=== PATIENT | male | born 1975 | race Caucasian/White ===

== ENCOUNTER 2018-04-17 16:40 | Emergency (ER) | payer BC ==
--- OUTSIDE RECORDS SUMMARY | 2018-04-17 16:55 | XMS REPORT ---
:1975 External Reference #:[id number] Author Organization [facility] Address [address], [address] [place] [address] Phone [phone] Care Team Providers Name Role Phone Teresita Weiss PA Care Team Information Mice Raiser Unavailable Teresita Weiss PA Primary Care Physician Unavailable Payers Type Date Identification Numbers Payment Provider Subscriber Commercial Policy Number: [id number] Vani Paniagua PayID: [id number] [address] [address] [place] [address] Commercial Expires: 2017 Policy Number: Kirondo Huang Paniagua [id number] PayID: [id number] [address] [place] [address] Problems Description No Information Family History Date Family Member(s) Problem(s) Comments Father Heart Attack Father Diabetes Father Hypertension Mother No Current Problems Social History Type Date Description Comments Lives With Girlfriend Diet Patient follows no dietary restrictions Occupation [employer] Cigarette Use Never Smoked Cigarettes ETOH Use Rarely consumes alcohol Smoking Patient denies history of smoking Daily Caffeine Consumes on average 5-10 cups of regular coffee per day Allergies, Adverse Reactions, Alerts Date Description Reaction Status Severity Comments 04/20/2017 NKDA active Medications Medication Date Status Form Strength Qnty SIG Indications Ordering Provider Metoprolol 05/21/ Active Tablets ER 25mg 90tab 1 tab by I10 Flex, Succinate ER 2016 24HR s mouth every MD [place] day One Daily 00// Active Tablets Multivitamin Unknown 0000 for men. one tab daily Super B / Active Tablets 1 by mouth Unknown Complex 0000 every day Vitamin D 00/00/ Active Tablets 1000Unit 1 by mouth Unknown 0000 every day Wrist Blood 04/20/ Misc 1unit BP recordings R03.0 Marcy, Pressure 2016 - as directed. Marilee, Monitor 04/21/ MTiffanie 2017 Doxycycline 00/ Hx Tablets 100mg Unknown Hyclate - 2017 Prednisone // Hx Tablets 20mg Unknown 0000 - 2017 Neomycin-Poly / Hx Solution 1% Unknown myxin-HC - 2017 Proair HFA / Hx Aerosol 108(90Base Unknown 0000 - ) mcg/Act 2017 Immunizations CPT Code Status Date Vaccine Lot # [id number] Given 03/28/2018 Influenza Virus Vaccine, Quadrivalent, 36 Mos+, .5ML Vital Signs Date Vital Result Comment 04/12/2018 BP Systolic Sitting Left Arm 134 mmHg BP Diastolic Sitting Left Arm 82 mmHg Body Temperature 98.4 F Heart Rate 79 /min Weight 302.38 lb O2 % BldC Oximetry 91 % 10/25/2017 BP Systolic Sitting Left Arm 140 mmHg BP Diastolic Sitting Left Arm 68 mmHg Body Temperature 98.5 F Heart Rate 80 /min Weight 302.00 lb O2 % BldC Oximetry 96 % 06/16/2017 BP Systolic 132 mmHg BP Diastolic 82 mmHg Body Temperature 97.5 F Heart Rate 89 /min Height 72 inches 6'0" Weight 295.00 lb BMI (Body Mass Index) 40.0 kg/m2 BSA (Body Surface Area) 2.51 m2 [place] body weight in kilograms 81 O2 % BldC Oximetry 96 % 05/21/2017 BP Systolic 158 mmHg BP Diastolic 102 mmHg Heart Rate 81 /min Height 72 inches 6'0" Weight 296.38 lb BMI (Body Mass Index) 40.2 kg/m2 BSA (Body Surface Area) 2.52 m2 [place] body weight in kilograms 81 04/20/2017 BP Systolic Sitting Right Arm 134 mmHg BP Diastolic Sitting Right Arm 82 mmHg Body Temperature 98.0 F Heart Rate 80 /min Height 72 inches 6'0" Weight 294.00 lb BMI (Body Mass Index) 39.9 kg/m2 BSA (Body Surface Area) 2.51 m2 [place] body weight in kilograms 81 Results Test Date Test Result H/L Range Note CBC W/Automated Diff 04/12/2018 White Blood Count 5.7 K/uL 3.4-10.5 1 Red Blood Count 4.82 M/uL 4.20-5.80 1 Hemoglobin 15.0 gm/dL 12.8-17.0 1 Hematocrit 42.9 % 38.0-48.0 1 Mean Cell Volume 89.0 fl 80.0-96.0 1 Mean Corpuscular HGB 31.1 pg 27.0-33.0 1 Mean Corpuscular HGB Conc 35.0 g/dL 31.7-36.0 1 Platelet Count 207 K/uL 155-360 1 Red Cell Distri Width SD 38.3 fl 36-51 1 Red Cell Distri Width %CV 12.0 % 11.6-15.8 1 Mean Platelet Volume 10.5 fL 6.6-10.6 1 Neut% 56.5 % 33.0-73.0 1 Lymph % 30.1 % 20.0-42.0 1 [place] % 8.2 % 0.0-10.0 1 Eo% 4.7 % 0.0-6.6 1 Bas% 0.5 % 0.0-1.1 1 Neut# 3.23 K/uL 1.8-7.0 1 Lymph # 1.72 K/uL 1.0-4.0 1 [place] # 0.47 K/uL 0.0-0.8 1 Eos # 0.27 K/uL 0.0-0.5 1 Baso # 0.03 K/uL 0.0-0.1 1 Comprehensive Metabolic Panel 04/12/2018 Glucose 160 mg/dL High 74-106 1 BUN 13 mg/dL 7-18 1 Creatinine 0.9 mg/dL 0.6-1.3 1 Glom Filtration Rate, Estimate >60 mL/min >60 1 If >60 mL/min >60 1, 2 BUN/Creat 14.4 ratio 1 Sodium 140 mmol/L 136-145 1 Potassium 3.8 mmol/L 3.5-5.1 1 Chloride 106 mmol/L 98-107 1 Carbon Dioxide 23 mmol/L 21-32 1 Anion Gap 11 mEq/L 8-16 1 Calcium 8.0 mg/dL Low 8.5-10.1 1 Total Protein 7.3 g/dL 6.4-8.2 1 Albumin 3.6 g/dL 3.4-5.0 1 Globulin 3.7 g/dL 1.9-4.3 1 Alb/Glob 1.0 ratio 1 Bilirubin,Total 0.5 mg/dL 0.2-1.0 1 Sgot/Ast 22 U/L 15-37 1 SGPT/Alt 78 U/L 12-78 1 Alkaline Phosphatase 75 U/L 45-117 1 Laboratory test finding 04/12/2018 Thyroid Stim Hormone < 0.01 uIU/mL Low 0.30-4.20 1 CBS W/Automated Diff 05/08/2017 White Blood Count 5.7 K/uL 3.4-10.5 3 Red Blood Count 5.08 M/uL 4.20-5.80 3 Hemoglobin 16.0 gm/dL 12.8-17.0 3 Hematocrit 44.9 % 38.0-48.0 3 Mean Cell Volume 88.4 fl 80.0-96.0 3 Mean Corpuscular HGB 31.5 pg 27.0-33.0 3 Mean Corpuscular HGB Conc 35.6 g/dL 31.7-36.0 3 Platelet Count 231 K/uL 150-400 3 Red Cell Distri Width SD 38.5 fl 36-51 3 Red Cell Distri Width %CV 12.2 % 11.6-15.8 3 Mean Platelet Volume 9.8 fL 6.6-10.6 3 Neut% 52.5 % 33.0-73.0 3 Lymph % 33.9 % 20.0-42.0 3 [place] % 8.3 % 0.0-10.0 3 Eo% 4.2 % 0.0-6.6 3 Bas% 1.1 % 0.0-1.1 3 Neut# 2.97 K/uL 1.8-7.0 3 Lymph # 1.92 K/uL 1.0-4.0 3 [place] # 0.47 K/uL 0.0-0.8 3 Eos # 0.24 K/uL 0.0-0.5 3 Baso # 0.06 K/uL 0.0-0.1 3 Comprehensive Metabolic Panel 05/08/2017 Glucose 111 mg/dL High 74-106 3 BUN 16 mg/dL 7-18 3 Creatinine 0.8 mg/dL 0.6-1.3 3 Glom Filtration Rate, Estimate >60 mL/min >60 3 If >60 mL/min >60 3, 4 BUN/Creat 20.0 ratio 3 Sodium 142 mmol/L 136-145 3 Potassium 4.2 mmol/L 3.5-5.1 3 Chloride 107 mmol/L 98-107 3 Carbon Dioxide 30 mmol/L 21-32 3 Anion Gap 5 mEq/L Low 8-16 3 Calcium 8.6 mg/dL 8.5-10.1 3 Total Protein 7.5 g/dL 6.4-8.2 3 Albumin 3.7 g/dL 3.4-5.0 3 Globulin 3.8 g/dL 1.9-4.3 3 Alb/Glob 1.0 ratio 3 Bilirubin,Total 0.5 mg/dL 0.2-1.0 3 Sgot/Ast 22 U/L 15-37 3 SGPT/Alt 64 U/L 12-78 3 Alkaline Phosphatase 68 U/L 45-117 3 Reflex add FT3? Y 3 Reflex add FT4? Y 3 Glycohemoglobin A1c 05/08/2017 Glycohemoglobin (A1c) 5.7 % 4.2-6.3 3, 5 eAG 117 mg/dL 3 LDL Cholesterol Profile 05/08/2017 Cholesterol 173 mg/dL <200 3, 6 Triglycerides 506 mg/dL High <150 3, 7 HDL Cholesterol 29 mg/dL Low >40 3, 8 LDL-Cholesterol TNP mg/dL < 100 3, 9 Reflex add FT3? Y 3 Reflex add FT4? Y 3 TSH Reflex FT4 And/Or 05/08/2017 Thyroid Stim Hormone < 0.01 uIU/mL Low 0.30-4.20 3 FT3 Reflex add FT3? Y 3 Reflex add FT4? Y 3 Free T3 05/08/2017 Free T3 4.58 pg/mL High 2.18-3.98 3 Reflex add FT3? Y 3 Reflex add FT4? Y 3 Free T4 05/08/2017 Free T4 1.01 ng/dL 0.76-1.46 3 Reflex add FT3? Y 3 Reflex add FT4? Y 3 1 I10 2 Note: Persistent reduction for 3 months or more in an eGFR <60 mL/min/1.73 m2 defines CKD. Patients with eGFR values >/=60 mL/min/1.73 m2 may also have CKD if evidence of persistent proteinuria is present. The original MDRD equation for estimated GFR is not valid for patients less than 18 years of age. Additional information may be found at www.kdoqi.org. 3 R03.0 4 Note: Persistent reduction for 3 months or more in an eGFR <60 mL/min/1.73 m2 defines CKD. Patients with eGFR values >/=60 mL/min/1.73 m2 may also have CKD if evidence of persistent proteinuria is present. The original MDRD equation for estimated GFR is not valid for patients less than 18 years of age. Additional information may be found at www.kdoqi.org. 5 Elevated levels of HbA1c suggest the need for more aggressive treatment of glycemia. The [place] [employer] recommends that a primary goal of therapy should be a HbA1c of <7% and that physicians should re-evaluate the treatment regimen in patients with HbA1c values consistently >8%. 6 Reference Guidelines*: Desirable: ........... < 200 mg/dL Borderline High: ..... 200-239 mg/dL High: ................ >=240 mg/dL * The National Cholesterol Education Program (NCEP) 7 Reference Guidelines*: Normal: ............. < 150 mg/dL Borderline High: .... 150-199 mg/dL High: ............... 200-499 mg/dL Very High: .......... > 500 mg/dL * Source: National Cholesterol Education Program (NCEP) 8 Reference Guidelines*: Low HDL: ..... < 40 mg/dL Normal: ..... 40-60 mg/dL Desirable: ... > 60 mg/dL *The National Cholesterol Education Program(NCEP) 9 (LDL CANNOT BE CALCULATED FOR TRIGS >400 mg/dL) Procedures Date CPT Code Description Status 05/21/2017 59154 EKG Interpretation And Report Only Completed Encounters Type Date Location Provider CPT E/M Dx Office Visit 10/25/2017 2:45p [place] [address] I10 E66.9 R94.6 E78.5 Office Visit 06/16/2017 3:45[place] [address] I10 E66.9 R94.6 E78.5 Office Visit 05/21/2017 4:15p [facility] [place] [address] I10 E66.9 E03.9 E78.5 Plan of Care Future Appointment(s):10/11/2018 3:30 pm - Teresita Weiss PA at [facility]04/12/2018 - Teresita Weiss PAI10 Essential (primary) hypertensionFollow up:6 months.E66.9 Obesity, unspecifiedComments:Drink water Limit sweetening of beverages.Avoid soda, fruit juice and other sugary drinks.Eat 5 servings of fruits and vegetables daily.Consume whole grains rather than processed.Encourage adequate sleep and keep electronics out of bedroom.R94.6 Abnormal results of thyroid function studiesComments:Check labs emurcF48.5 Hyperlipidemia, unspecifiedComments:Watch the diet. Try to lose weight. I would like to check labs in 6 months.R21 Rash and other nonspecific skin eruptionReferral:Deidre Quinteros M.D.,
[2018-04-17 17:02] VITALS: BP 144/88
--- NOTE | 2018-04-17 17:18 | UC ---
Laceration HPI - HPI Summary HPI Summary: While working at home today pt accidentally pinched the tip of his thumb with wire cutters/strippers. 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 Is not concerned about injury, here because is concerned. - History Of Current Complaint Chief Complaint: UCLaceration Stated Complaint: RIGHT THUMB LACERATION Time Seen by Provider: 04/17/18 17:00 Hx Obtained From: Patient Laceration Location: Finger Mechanism Of Injury: Sharp Trauma Onset/Duration: Sudden Onset Pain Intensity: 0 Aggravating Factors: Nothing Related History: Dominant Hand Right - Allergies/Home Medications Allergies/Adverse Reactions: Allergies Allergy/AdvReac Type Severity Reaction Status Date / Time No Known Allergies Allergy Verified 04/17/18 16:56 Home Medications: Home Medications Metoprolol Succinate XL TAB* [Toprol XL TAB*] 25 mg PO DAILY 04/17/18 [History Confirmed 04/17/18] diPHENhydraMINE PO* [Benadryl PO 25 MG TAB*] 50 mg PO Q6H PRN 04/17/18 [History Confirmed 04/17/18] PMH/Surg Hx/FS Hx/Imm Hx Cardiovascular History: Hypertension - Surgical History Surgical History: Yes Surgery Procedure, Year, and Place: Left Lower Leg Fracture Repair; Tonsillectomy - Family History Known Family History: Positive: Hypertension - Social History Occupation: Employed Full-time - Works as water truck driver Lives: With Family Alcohol Use: Rare Substance Use Type: None Smoking Status (MU): Former Smoker Type: Smokeless Tobacco - Immunization History Most Recent Tetanus Shot: 2017 Review of Systems Constitutional: Negative Skin: Other - injury to L thumb Eyes: Negative ENT: Negative Respiratory: Negative Cardiovascular: Negative Gastrointestinal: Negative Genitourinary: Negative Motor: Negative Neurovascular: Negative Musculoskeletal: Negative Neurological: Negative Psychological: Negative Is Patient Immunocompromised?: No All Other Systems Reviewed And Are Negative: Yes Physical Exam Triage Information Reviewed: Yes Appearance: Well-Appearing, No Pain Distress, Obese Vital Signs: Initial Vital Signs Temp 98.1 F 04/17/18 16:55 Pulse 72 04/17/18 16:55 Resp 18 04/17/18 16:55 BP 144/88 04/17/18 16:55 Pulse Ox 97 04/17/18 16:55 Vital Signs Reviewed: Yes Eye Exam: Normal Eyes: Positive: Conjunctiva Clear ENT Exam: Normal ENT: Positive: Normal ENT inspection, Hearing grossly normal, Pharynx normal, TMs normal Neck exam: Normal Neck: Positive: Supple, Nontender, No Lymphadenopathy Respiratory Exam: Normal Respiratory: Positive: Chest non-tender, Lungs clear, Normal breath sounds, No respiratory distress, No accessory muscle use Cardiovascular Exam: Normal Cardiovascular: Positive: RRR, No Murmur Musculoskeletal Exam: Normal Musculoskeletal: Positive: Strength Intact, ROM Intact Neurological Exam: Normal Neurological: Positive: Alert Psychological Exam: Normal Skin Exam: Other - superficial lacerations to L thumbnail and tip of skin; approx 1/2cm on nail and 1/2cm skin. Injured tissue well-adhered, no gaping wounds or active bleeding. Laceration Course/Dx - Differential Dx - Laceration/Wound Provider Diagnoses: superficial skin wound L thumb, no repair completed Discharge - Sign-Out/Discharge Documenting (check all that apply): Patient Departure All imaging exams completed and their final reports reviewed: No Studies - Discharge Plan Condition: Stable Disposition: HOME Patient Education Materials: Laceration Without Closure (ED) Referrals: Teresita Weiss PA [Primary Care Provider] - If Needed Additional Instructions: Keep the wound clean and covered until it is no longer tender or draining. If you develop redness, swelling, or streaking up the thumb at any time please get seen again right away. - Billing Disposition and Condition Condition: STABLE Disposition: Home
== END 2018-04-17 17:25 | disposition home or self-care (01) ==
LOC: UCCORT 16:40
DX: S61.012A Laceration without foreign body of left thumb without damage to nail, initial encounter (principal); I10 Essential (primary) hypertension; Z87.891 Personal history of nicotine dependence; W27.8XXA Contact with other nonpowered hand tool, initial encounter; Y92.009 Unspecified place in unspecified non-institutional (private) residence as the place of occurrence of the external cause
CPT/HCPCS: 99213; G0463